=== PATIENT | male | born 1995 | race Caucasian/White ===

== ENCOUNTER 2017-06-04 02:35 | Emergency (ER) | payer OTHER ==
[2017-06-04 06:50] LABS: URINE BLOOD (Dip) POC 3+ (NEGATIVE); URINE GLUCOSE (Dip) POC Negative (NEGATIVE); URINE KETONES (Dip) POC Trace (NEGATIVE); URINE LEUKOCYTE EST (Dip) POC Negative (NEGATIVE); URINE NITRITE (Dip) POC Negative (NEGATIVE); URINE TOTAL PROTEIN POC 3+ (NEGATIVE)
[2017-06-04 06:50] LABS: URINE PH (Dip) POC 6.5 (5.0-8.5)
[2017-06-04] MEDS: SOD CHLORIDE 0.9% 500 ML IV (07:07)
[2017-06-04 07:19] LABS: ADD MAN DIFF? NO
[2017-06-04 07:23] LABS: BASOPHILS % 0.6 % (0.0-2.0); EOSINOPHILS # 0.2 10^3/ul (0.0-0.5); EOSINOPHILS % 2.8 % (0.0-7.0); HEMOGLOBIN 14.6 g/dl (14.0-18.0); LYMPHOCYTES % 41.7 % (18.0-55.0); MEAN CORPUSCULAR HEMOGLOBIN 30.8 pg (29.0-33.0); MEAN CORPUSCULAR VOLUME 90.7 fl (72.0-104.0); MEAN PLATELET VOLUME 11.3 fl (7.4-10.4); MONOCYTE # 0.8 10^3/ul (0.3-0.9); NEUTROPHIL # 3.1 10^3/ul (1.6-7.5); NEUTROPHILS % 43.2 % (30.0-74.0); PLATELET COUNT 198 10^3/UL (140-415); RED BLOOD COUNT 4.74 10^6/ul (4.70-6.10); RED CELL DISTRIBUTION WIDTH 12.5 % (11.5-14.5)
[2017-06-04 07:23] LABS: WHITE BLOOD COUNT 7.3 10^3/ul (4.8-10.8)
[2017-06-04 07:46] LABS: ANION GAP 15 (8-16); BLOOD UREA NITROGEN 12 mg/dl (7-20); CALCIUM 9.5 mg/dl (8.4-10.2); CARBON DIOXIDE 29 mmol/L (21-31); CHLORIDE 103 mmol/L (97-110); CREATININE 0.69 mg/dl (0.61-1.24); GLUCOSE 81 mg/dl (70-220); POTASSIUM 4.4 mmol/L (3.5-5.1); SODIUM 143 mmol/L (135-144)
[2017-06-04 07:49] LABS: CREATINE KINASE 87 IU/L (23-200)
[2017-06-04 08:10] LABS: ADD UMIC YES; UR ASCORBIC ACID NEGATIVE (NEGATIVE); UR BACTERIA FEW /HPF (NONE SEEN); UR BILIRUBIN (Dip) NEGATIVE (NEGATIVE); UR BLOOD (Dip) 3+ mg/dL (NEGATIVE); UR CLARITY CLOUDY (CLEAR); UR COLOR RED (YELLOW); UR GLUCOSE (Dip) NEGATIVE (NEGATIVE); UR KETONES (Dip) NEGATIVE (NEGATIVE); UR LEUKOCYTE ESTERASE (Dip) NEGATIVE Leu/ul (NEGATIVE); UR NITRITE (Dip) NEGATIVE (NEGATIVE); UR RBC > 182 /HPF (0-5); UR TOTAL PROTEIN (Dip) 2+ mg/dl (NEGATIVE); UR UROBILINOGEN (Dip) 1+ mg/dL (NEGATIVE); UR WBC 98 /HPF (0-5)
[2017-06-04] MEDS: CEFTRIAXONE 250 MG INJ IM (08:14)
[2017-06-04] MEDS: AZITHROMYCIN 250 MG TAB PO (08:14)
== END 2017-06-04 08:36 | disposition home or self-care (01) ==
LOC: FTE 02:35
DX: R31.9 Hematuria, unspecified (principal); N34.2 Other urethritis; F17.210 Nicotine dependence, cigarettes, uncomplicated
CPT/HCPCS: 36415; 80048; 81001; 81003; 82550; 85025; 96372; 99284-25

== ENCOUNTER 2018-01-26 02:03 | Emergency (ER) | payer OTHER ==
[2018-01-26] MEDS: IBUPROFEN 600 MG TAB PO (03:06)
== END 2018-01-26 04:45 | disposition home or self-care (01) ==
LOC: FTE 02:03
DX: S82.101A Unspecified fracture of upper end of right tibia, initial encounter for closed fracture (principal); V29.9XXA Motorcycle rider (driver) (passenger) injured in unspecified traffic accident, initial encounter
CPT/HCPCS: 29505; 73562; 99283-25

== ENCOUNTER 2018-07-03 07:33 | Emergency (ER) | payer OTHER ==
[2018-07-03] MEDS: LIDOCAINE 1% (MPF) 5 ML VIAL INFIL (08:44)
== END 2018-07-03 09:06 | disposition home or self-care (01) ==
LOC: FTE 07:33
DX: S51.812A Laceration without foreign body of left forearm, initial encounter (principal); X58.XXXA Exposure to other specified factors, initial encounter; Y92.9 Unspecified place or not applicable; Z87.891 Personal history of nicotine dependence
CPT/HCPCS: 12002; 99283-25